=== PATIENT | female | born 1930 | race African-American/Black ===

== ENCOUNTER 2018-03-07 21:30 | Emergency (ER) | payer BC, MEDICARE ==
--- NOTE | 2018-03-07 23:49 | ER Document Report ---
ED Blood Pressure Problem - General Chief Complaint: High Blood Pressure Stated Complaint: BLOOD PRESSURE ISSUES Time Seen by Provider: 03/07/18 23:14 TRAVEL OUTSIDE OF THE [place] IN LAST 30 DAYS: No - HPI Notes: Patient is a 87-year-old female that presents to the emergency department for chief complaint of hypertension. Patient reports she was getting elevated blood pressure readings today which is why she came into the emergency room. She does have a history of hypertension. She has been compliant with her home metoprolol, nifedipine, donepezil, hydrochlorothiazide, and Lasix. She states that her highest blood pressure at home was 180s systolic. Patient's presenting blood pressure in the emergency room today was 220/78. She denies having any symptoms with this. She denies headache, vision changes, chest pain, shortness of breath, numbness, weakness, abdominal pain, nausea/vomiting, dysuria and hematuria. Past Medical History: Hypertension Past Surgical History: Reviewed in chart Social History: Denies drugs alcohol and tobacco Family History: Reviewed and noncontributory for presenting illness Allergies: Reviewed, see documented allergy list. REVIEW OF SYSTEMS: CONSTITUTIONAL : No fever No chills No diaphoresis No recent illness EENT: No vision changes No congestion No sore throat CARDIOVASCULAR: No chest pain No palpitations RESPIRATORY: No shortness of breath No cough No difficulty breathing GASTROINTESTINAL: No abdominal pain No nausea No vomiting No diarrhea GENITOURINARY: No dysuria No hematuria No difficulty urinating MUSCULOSKELETAL: No back pain No leg pain No arm pain SKIN: No rashes No lesions LYMPHATIC: No swollen, enlarged glands. NEUROLOGICAL: No lightheadedness No headache No weakness No paresthesias PSYCHIATRIC: No anxiety No depression PHYSICAL EXAMINATION: Vital signs reviewed, nursing noted reviewed. GENERAL: Well-appearing, well-nourished and in no acute distress. HEAD: Atraumatic, normocephalic. EYES: Eyes appear normal, extraocular movements intact, sclera anicteric, conjunctiva are normal. ENT: nares patent, oropharynx clear without exudates. Moist mucous membranes. NECK: Normal range of motion, supple without lymphadenopathy LUNGS: Breath sounds clear to auscultation bilaterally and equal. No wheezes rales or rhonchi. HEART: Regular rate and rhythm without murmurs ABDOMEN: Soft, nontender, normoactive bowel sounds. No rebound, guarding, or rigidity. No masses appreciated. EXTREMITIES: Nontender, good range of motion, no pitting or edema. NEUROLOGICAL: No focal neurological deficits. Moves all extremities spontaneously Motor and sensory grossly intact on exam. PSYCH: Normal mood, normal affect. SKIN: Warm, Dry, normal turgor, no rashes or lesions noted on exposed skin Past Medical History - Social History Smoking Status: Never Smoker Family History: Reviewed & Not Pertinent Physical Exam - Vital signs Vitals: Temp Pulse Resp BP Pulse Ox 98.9 F 66 19 220/78 H 99 03/07/18 21:30 03/07/18 21:30 03/07/18 21:30 03/07/18 21:30 03/07/18 21:30 Course - Re-evaluation Re-evalutation: 03/07/18 23:47 Vitals reviewed. Nursing notes reviewed. Patient's blood pressure is 185/76 without intervention. She is asymptomatic. Patient has for blood pressure medication suggestive of chronic difficult to control hypertension. Her family states her goal blood pressure is usually around 140s 150s systolic. With her being asymptomatic no further workup is currently indicated. I encouraged her to keep an eye on her blood pressure at home and return if it becomes higher than 215/115. She was also counseled on symptoms to return to the emergency room and verbalized understanding. She will otherwise take her blood pressure cuff to her primary care doctor on Friday for calibration and blood pressure recheck. She is stable at discharge and family is in agreement with this plan. - Vital Signs Vital signs: Temp Pulse Resp BP Pulse Ox 98.9 F 66 19 220/78 H 99 03/07/18 21:30 03/07/18 21:30 03/07/18 21:30 03/07/18 21:30 03/07/18 21:30 Discharge - Discharge Clinical Impression: Hypertension Qualifiers: Hypertension type: unspecified Qualified Code(s): I10 - Essential (primary) hypertension Condition: Stable Disposition: HOME, SELF-CARE Additional Instructions: Please return to the emergency department if you have any worsening, or concern of your symptoms. Please return to the emergency department if you develop chest pain, difficulty breathing, severe abdominal pain, or ongoing vomiting. Please follow-up with your primary care physician in 2-3 days and any other recommended physicians. If prescribed, take all medications as directed. If you have any questions or concerns do not hesitate to return the emergency department for evaluation. Return to the emergency room if your blood pressure is greater than 215/115 or i f you develop any headache, vision changes, nausea/vomiting, chest pain, shortness of breath, abdominal pain, blood in your urine or painful urination. Or other symptoms concerning to you.
[2018-03-08 00:10] VITALS: BP 185/76
== END 2018-03-07 23:45 | disposition home or self-care (01) ==
LOC: ER 21:30
DX: I10 Essential (primary) hypertension (principal); Z79.899 Other long term (current) drug therapy
CPT/HCPCS: 99283